=== PATIENT | male | born 1995 | race Caucasian/White ===

== ENCOUNTER 2017-07-18 13:42 | Emergency (ER) | payer OTHER ==
[2017-07-18 13:49] VITALS: BP 104/51; PULSE 75; RESP 18; TEMP 97.1
--- NOTE | 2017-07-18 14:03 | ED ---
Back Pain HPI - General Chief Complaint: Back Pain/Injury Stated Complaint: back pain Time Seen by Provider: 07/18/17 13:54 Source: patient, RN notes reviewed Mode of arrival: ambulatory Limitations: no limitations - History of Present Illness Initial Comments: 21-year-old male presents emergency Department with chief complaint of low back pain. He states has been present over week or so. Patient states he injured it while lifting some furniture moving for his friend. 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 He states makes pain worse. He denies any gallbladder incontinence or retention. Denies any saddle anesthesias. He states the pain is worse with certain movements that are at rest. - Related Data Previous Rx's Medication Instructions Recorded Cyclobenzaprine [Flexeril] 10 mg PO TID PRN #15 tab 07/18/17 Ibuprofen [Motrin] 600 mg PO Q8HR PRN #30 tab 07/18/17 traMADol HCl [Ultram] 50 mg PO Q6H PRN #20 tab 07/18/17 Allergies Allergy/AdvReac Type Severity Reaction Status Date / Time No Known Allergies Allergy Verified 07/18/17 13:48 Review of Systems ROS Statement: Those systems with pertinent positive or pertinent negative responses have been documented in the HPI. ROS Other: All systems not noted in ROS Statement are negative. Past Medical History Past Medical History: No Reported History History of Any Multi-Drug Resistant Organisms: None Reported Past Surgical History: No Surgical Hx Reported Past Psychological History: Bipolar Smoking Status: Current every day smoker Past Alcohol Use History: Occasional Past Drug Use History: Marijuana General Exam Limitations: no limitations General appearance: alert, in no apparent distress Neck exam: Present: normal inspection, full ROM. Absent: tenderness, meningismus, lymphadenopathy Respiratory exam: Present: normal lung sounds bilaterally. Absent: respiratory distress, wheezes, rales, rhonchi, stridor Cardiovascular Exam: Present: regular rate, normal rhythm, normal heart sounds. Absent: systolic murmur, diastolic murmur, rubs, gallop, clicks GI/Abdominal exam: Present: soft, normal bowel sounds. Absent: distended, tenderness, guarding, rebound, rigid Extremities exam: Present: normal inspection, full ROM, normal capillary refill. Absent: tenderness, pedal edema, joint swelling, calf tenderness Back exam: Present: full ROM, tenderness (Tenderness along the lumbar region on the left), muscle spasm, paraspinal tenderness, other (Pain with straight leg raise on the left). Absent: vertebral tenderness Neurological exam: Present: alert, oriented X3, CN II-XII intact, reflexes normal. Absent: motor sensory deficit Skin exam: Present: warm, dry, intact, normal color. Absent: rash Course Vital Signs 07/18/17 13:46 Temperature 97.1 F L Pulse Rate 75 Respiratory 18 Rate Blood Pressure 104/51 O2 Sat by Pulse 99 Oximetry Medical Decision Making - Medical Decision Making 21-year-old male presented for low back pain. Patient has lumbar strain. Patient be treated with muscle relaxers and sleeping medication. He is advised to do daily stretching and follow-up with primary physician for possible physical therapy. He does agree to this plan. Patient no red flag symptoms. Return parameters were discussed. Disposition Clinical Impression: Strain of lumbar region Disposition: HOME SELF-CARE Condition: Stable Instructions: Acute Low Back Pain (ED) Additional Instructions: Please return to the Emergency Department if symptoms worsen or any other concerns. Prescriptions: Cyclobenzaprine [Flexeril] 10 mg PO TID PRN #15 tab PRN Reason: Muscle Spasm Ibuprofen [Motrin] 600 mg PO Q8HR PRN #30 tab PRN Reason: Pain traMADol HCl [Ultram] 50 mg PO Q6H PRN #20 tab PRN Reason: Pain Referrals: None,Stated [Primary Care Provider] - 1-2 days Time of Disposition: 14:02
== END 2017-07-18 14:16 | disposition home or self-care (01) ==
LOC: EC 13:42
DX: S39.012A Strain of muscle, fascia and tendon of lower back, initial encounter (principal); F17.200 Nicotine dependence, unspecified, uncomplicated; X50.0XXA Overexertion from strenuous movement or load, initial encounter; Y93.89 Activity, other specified
CPT/HCPCS: 99283

== ENCOUNTER 2017-08-27 16:51 | Emergency (ER) | payer OTHER ==
[2017-08-27 17:09] VITALS: TEMP 98.2
[2017-08-27] MEDS ORDERED: DIPH,PERTUS(ACELL)TETVAC-LF 0.5 ML VIAL IM ONE (17:53)
--- NOTE | 2017-08-27 18:15 | XR ---
Left knee HISTORY: Laceration, trauma and pain 3 views of the left knee Bone mineralization, joint spaces and alignment are maintained. No radiopaque foreign body. There is overlying artifact. IMPRESSION: No acute abnormalities evident
--- NOTE | 2017-08-27 18:23 | ED ---
General Adult HPI - General Chief complaint: Wound/Laceration Stated complaint: Lac left knee Time Seen by Provider: 08/27/17 17:30 Source: patient, RN notes reviewed Mode of arrival: ambulatory Limitations: no limitations - History of Present Illness Initial comments: This is a 22-year-old male who presents to the emergency department with chief complaint of left knee injury. Patient states that while at work this morning at approximately 8 AM he fell down and his left knee hit the corner of a brick. Patient reports he sustained multiple abrasions that he packed with mud. Patient states there was minimal amount of bleeding. Patient states that area surrounding the abrasions over his patella is tender and he has difficulty with weight-bearing due to pain. Patient currently rates his pain as 8/10. Denies fever, chills, chest pain, shortness of breath, abdominal pain, nausea or vomiting, constipation or diarrhea, dysuria or hematuria, numbness or tingling, headache or vision changes. - Related Data Home Medications Medication Instructions Recorded Confirmed No Known Home Medications [No 08/27/17 08/27/17 Known Home Medications] Allergies Allergy/AdvReac Type Severity Reaction Status Date / Time No Known Allergies Allergy Verified 08/27/17 17:06 Review of Systems ROS Statement: Those systems with pertinent positive or pertinent negative responses have been documented in the HPI. ROS Other: All systems not noted in ROS Statement are negative. Past Medical History Past Medical History: No Reported History History of Any Multi-Drug Resistant Organisms: None Reported Past Surgical History: No Surgical Hx Reported Past Psychological History: Bipolar Smoking Status: Current every day smoker Past Alcohol Use History: None Reported Past Drug Use History: Marijuana General Exam - General Exam Comments Initial Comments: General: Awake and alert, well-developed; in no apparent distress. Clothing is covered in dried mud. HEENT: Head atraumatic, normocephalic. Pupils are equal, round and reactive to light. Extraocular movements intact. Neck: Supple. Normal ROM. Cardiovascular: Regular rate and rhythm. No murmurs, rubs or gallops. Chest symmetrical. Respiratory: Lungs clear to auscultation bilaterally. No wheezes, rales or rhonchi. Normal respiratory effort with no use of accessory muscles. Musculoskeletal: Normal ROM, no tenderness, no pedal edema. Pulses 2+ equal and palpable bilaterally. Skin: [place], warm and dry without rashes. Horizontal superficial linear laceration superior to patella on the left knee. Soft tissue overlying patella has mild swelling and ecchymosis. Pain is elicited with palpation to the left patella. Neurological: Alert and oriented x3. CN II-XII grossly intact. Speech is fluent and answers are appropriate. No focal neuro deficits. Psychiatric: Normal mood and affect. No overt signs of depression or anxiety noted. Limitations: no limitations Course Vital Signs 08/27/17 17:06 Temperature 98.2 F Pulse Rate 66 Respiratory 18 Rate Blood Pressure 135/81 O2 Sat by Pulse 100 Oximetry Medical Decision Making - Medical Decision Making This is a 22-year-old male who presents to the emergency department with complaint of left knee injury. Abrasion on left knee does not require sutures or Dermabond. X-ray of left knee revealed no acute abnormalities including fractures or dislocations. Patient will be discharged home with recommendation to use ice and ibuprofen as needed for pain. Patient is in agreement to the plan and voices understanding. All questions were answered. - Radiology Data Radiology results: report reviewed X-ray of left knee impression: No acute abnormalities evident. Disposition Clinical Impression: Contusion of left knee Disposition: HOME SELF-CARE Condition: Good Instructions: Knee Pain (ED) Additional Instructions: Please follow up with primary care provider within 1-2 days. Return to emergency department if symptoms should worsen or any concerns arise. Referrals: None,Stated [Primary Care Provider] - 1-2 days Time of Disposition: 18:34
[2017-08-27 18:59] VITALS: BP 122/65; PULSE 98; RESP 20
== END 2017-08-27 18:59 | disposition home or self-care (01) ==
LOC: EC 16:51
DX: S81.012A Laceration without foreign body, left knee, initial encounter (principal); F17.200 Nicotine dependence, unspecified, uncomplicated; Z23 Encounter for immunization; W01.198A Fall on same level from slipping, tripping and stumbling with subsequent striking against other object, initial encounter; Y99.0 Civilian activity done for income or pay; Y92.69 Other specified industrial and construction area as the place of occurrence of the external cause
CPT/HCPCS: 90471; 90715; 99283